=== PATIENT | female | born 1955 | race African-American/Black ===

== ENCOUNTER 2016-10-23 01:28 | Emergency (ER) | payer MEDICAID, OTHER ==
[~2016-10-23] VITALS: Ht 170.2 cm; Wt 115.7 kg
[~2016-10-23 01:28] MED LIST: IBUPROFEN600 MG ORAL; NKM
--- NOTE | 2016-10-23 02:10 | Emergency Room Report ---
History of Present Illness General Chief Complaint: Abdominal Pain Source: Patient Present Illness HPI Patient presents with a month of right lower quadrant pain. She also has fairly significant back pain associated with this. Started September 14. She has some dysuria and also change in her urinary pattern. She had a hysterectomy on September 14. She initially took Wysox which helped the pain. She has no other pain medication at this time. She's been working. She's also been drinking some alcohol which has helped. No vomiting or diarrhea. Pain is 10/10, burning /aching, constant. She's also complained of some chest pain which has been intermittent. The last time was a week ago. Allergies: Coded Allergies: No Known Allergies (Unverified , 05/21/16) Patient History Past Medical History: see triage record Past Surgical History: hysterectomy Social History: Reports: alcohol use, Denies: smoking Social History Narrative guard supervisor Last Menstrual Period: Hysterectomy Now: No Reviewed Nursing Documentation: PMH: Agreed, PSxH: Agreed Nursing Documentation-PMH Past Medical History: No History, Except For Hx Diabetes: Yes Review of Systems All Other Systems: negative except mentioned in HPI Physical Exam Vital Signs Date Time Temp Pulse Resp B/P Pulse Ox O2 Delivery O2 Flow Rate FiO2 10/23/16 01:34 98.1 78 16 159/84 100 Room Air Sp02 EP Interpretation: reviewed, normal General Appearance: well appearing, no apparent distress, GCS 15 Head: normocephalic Eyes: bilateral eye PERRL, bilateral eye normal inspection ENT: moist mucus membranes Neck: supple Respiratory: lungs clear, normal breath sounds Cardiovascular #1: regular rate, rhythm Cardiovascular #2: 2+ radial (R) Gastrointestinal: normal bowel sounds, non-distended, no hernia, no rebound, guarding - minimal, tenderness Musculoskeletal: back normal, gait/station normal, normal range of motion Neurologic: alert, oriented x3, grossly normal Psychiatric: mood/affect normal Skin: normal inspection, warm/dry Medical Decision Making Diagnostic Impression: Primary Impression: Abdominal pain Qualified Codes: R10.31 - Right lower quadrant pain Additional Impressions: Back pain Qualified Codes: M54.5 - Low back pain Monial infection of vagina ER Course The patient presents with right lower quadrant pain that's been well for months. Also radiates to her back. Differential includes muscle strain, ovarian cysts, postsurgical complication, UTI, pyelonephritis amongst others. Emergent evaluation with labs, x-ray and EKG is she's been complaining about chest pain. Patient treated with IV hydration and analgesia. Labs remarkable for normal white count and H&H. Has microcytic indices. Urinalysis shows yeast and also minimal pyuria. The patient still has significant lower back pain. Plain films are unremarkable. A CT of the abdomen and pelvis is ordered including bone windows back. CT with R adnexal cystic process. Discussed this with patient . Pain is improved. Patient stable for outpatient observation and treatment. Laboratory Tests Test 10/23/16 01:53 10/23/16 01:55 Urine Color Pale yellow Urine Appearance Clear Urine pH 6 (4.5-8.0) Urine Specific [place] 1.025 (1.005-1.035) Urine Protein Negative (NEGATIVE) Urine Glucose (UA) Negative (NEGATIVE) Urine Ketones Negative (NEGATIVE) Urine Occult Blood 1+ (NEGATIVE) H Urine Nitrite Negative (NEGATIVE) Urine Bilirubin Negative (NEGATIVE) Urine Urobilinogen 1 MG/DL (0.0-1.0) H Urine Leukocyte Esterase 1+ (NEGATIVE) H Urine RBC 2-4 /HPF (0 - 2) H Urine WBC 2-4 /HPF (0 - 2) Urine Squamous Epithelial Cells Many /LPF (NONE/OCC) H Urine Bacteria Few /HPF (NONE) Urine Yeast Moderate /HPF (NONE) H White Blood Count 7.2 K/UL (4.8-10.8) Red Blood Count 5.07 M/UL (4.20-5.40) Hemoglobin 10.1 G/DL (12.0-16.0) L Hematocrit 34.2 % (37.0-47.0) L Mean Corpuscular Volume 68 FL (80-99) L Mean Corpuscular Hemoglobin 19.8 PG (27.0-31.0) L Mean Corpuscular Hemoglobin Concent 29.4 G/DL (32.0-36.0) L Red Cell Distribution Width 18.4 % (11.6-14.8) H Platelet Count 277 K/UL (150-450) Mean Platelet Volume 7.5 FL (6.5-10.1) Neutrophils (%) (Auto) 65.1 % (45.0-75.0) Lymphocytes (%) (Auto) 25.3 % (20.0-45.0) Monocytes (%) (Auto) 6.7 % (1.0-10.0) Eosinophils (%) (Auto) 1.9 % (0.0-3.0) Basophils (%) (Auto) 1.0 % (0.0-2.0) Prothrombin Time 9.8 SEC (9.30-11.50) Prothrombin Time INR 1.0 (0.9-1.1) PTT 28 SEC (23-33) Sodium Level 143 mEQ/L (135-145) Potassium Level 3.7 mEQ/L (3.4-4.9) Chloride Level 102 mEQ/L (98-107) Carbon Dioxide Level 29 mEQ/L (20-30) Anion Gap 12 (5-15) Blood Urea Nitrogen 13 mg/dL (7-23) Creatinine 0.8 mg/dL (0.5-0.9) Estimate Glomerular Filtration Rate > 60 mL/min (>60) Glucose Level 126 mg/dL (74-106) H Calcium Level 9.1 mg/dL (8.6-10.2) Total Bilirubin 0.4 mg/dL (0.0-1.2) Aspartate Amino Transferase (AST) 14 U/L (5-40) Alanine Aminotransferase (ALT) 8 U/L (3-33) Alkaline Phosphatase 98 U/L (35-104) Troponin I < 0.30 ng/mL (<=0.30) Total Protein 7.5 g/dL (6.6-8.7) Albumin 3.9 g/dL (3.5-5.2) Globulin 3.6 g/dL Albumin/Globulin Ratio 1.0 (1.0-2.7) Lipase 38 U/L (< 60) EKG Diagnostic Results Rate: normal Rhythm: NSR ST Segments: no acute changes Rhythm Strip Diag. Results EP Interpretation: yes Rhythm: NSR, no PVC's, no ectopy CT/MRI/US Diagnostic Results CT/MRI/US Diagnostic Results : Imaging Test Ordered: CT abd and pelvis Impression R adnexal cystic lesion 2/4X1.6. DJD spine an hips Last Vital Signs Date Time Temp Pulse Resp B/P Pulse Ox O2 Delivery O2 Flow Rate FiO2 10/23/16 05:15 98.1 66 16 143/84 100 Room Air Status: improved Disposition: HOME, SELF-CARE Condition: Improved Scripts Fluconazole (FLUCONAZOLE) 100 Mg Tablet 100 MG ORAL DAILY, #7 TAB 0 Refills Prov: Blu Saleh M.D. 10/23/16 Tramadol Hcl* (ULTRAM*) 50 Mg Tablet 50 MG ORAL Q6H Y for For Pain, #12 TAB 0 Refills Prov: Blu Saleh M.D. 10/23/16 Ibuprofen* (MOTRIN*) 600 Mg Tablet 600 MG ORAL Q6H Y for For Pain, #20 TAB Prov: Blu Saleh M.D. 10/23/16 Referrals: NON PHYSICIAN (PCP) Blu Saleh M.D. Oct 23, 2016 02:10
[2016-10-23] MEDS ORDERED: Ketorolac 30mg Inj IV ONE (02:15)
[2016-10-23 02:26] VITALS: BP 159/84
[2016-10-23 02:29] LABS: EOSINOPHILS % (AUTO) 1.9 % (0.0-3.0); LYMPHOCYTES % (AUTO) 25.3 % (20.0-45.0); MEAN CORPUSCULAR HEMOGLOBIN 19.8 PG (27.0-31.0); MEAN CORPUSCULAR HGB CONC 29.4 G/DL (32.0-36.0); MEAN CORPUSCULAR VOLUME 68 FL (80-99); MEAN PLATELET VOLUME 7.5 FL (6.5-10.1); MONOCYTES % (AUTO) 6.7 % (1.0-10.0); NEUTROPHILS % (AUTO) 65.1 % (45.0-75.0); PLATELET COUNT 277 K/UL (150-450); RED BLOOD COUNT 5.07 M/UL (4.20-5.40); RED CELL DISTRIBUTION WIDTH 18.4 % (11.6-14.8); WHITE BLOOD COUNT 7.2 K/UL (4.8-10.8)
[2016-10-23 02:29] LABS: APPEARANCE,URINE CLEAR; KETONES,URINE NEGATIVE (NEGATIVE); LEUKOCYTE ESTERASE ,URINE 1+ (NEGATIVE); NITRITE,URINE NEGATIVE (NEGATIVE); PH,URINE 6 (4.5-8.0); PROTEIN,URINE NEGATIVE (NEGATIVE); UROBILINOGEN,URINE 1 MG/DL (0.0-1.0)
[2016-10-23 02:38] LABS: PROTHROMBIN TIME 9.8 SEC (9.30-11.50)
[2016-10-23 02:40] LABS: BACTERIA,URINE FEW /HPF; SQUAMOUS EPITHELIAL CELL,UR MANY /LPF (NONE/OCC); YEAST,URINE MODERATE /HPF
[2016-10-23 02:44] LABS: TROPONIN I < 0.30 ng/mL (<=0.30)
[2016-10-23 02:46] LABS: ALANINE AMINOTRANSFERASE 8 U/L (3-33); ANION GAP 12 (5-15); ASPARTATE AMINO TRANSFERASE 14 U/L (5-40); CALCIUM 9.1 mg/dL (8.6-10.2); CARBON DIOXIDE 29 mEQ/L (20-30); CHLORIDE 102 mEQ/L (98-107); CREATININE 0.8 mg/dL (0.5-0.9); GLOMERULAR FILTRATION RATE > 60 mL/min (>60); HEMOLYSIS 0; LIPASE 38 U/L (< 60); POTASSIUM 3.7 mEQ/L (3.4-4.9); SODIUM 143 mEQ/L (135-145); TOTAL PROTEIN 7.5 g/dL (6.6-8.7)
[2016-10-23 04:41] VITALS: BP 143/84
[2016-10-23] MEDS ORDERED: TRAMADOL HCL50 MG ORAL (05:01)
[2016-10-23] MEDS ORDERED: IBUPROFEN600 MG ORAL (05:01)
[2016-10-23] MEDS ORDERED: FLUCONAZOLE100 MG ORAL (05:06)
[2016-10-23 05:15] VITALS: BP 143/84
--- NOTE | 2016-10-24 09:06 | Diagnostic Imaging Report ---
Indication: ABD PAIN Technique: CT scan of the abdomen and pelvis was performed from the diaphragms to the symphysis pubis with intravenous contrast material only per specific request of the ordering physician.. 5 mm sections were generated. Axial, coronal, and sagittal images are presented. Dose: Total Dose Length Product - DLP [address] Dose Index - CTDIvol(s) 19.28 mGy. Comparison: None Findings: The liver is unremarkable. The gallbladder is normal. The spleen is unremarkable. The pancreas is normal. Adrenal glands are unremarkable. A tiny low-density area in the right kidney, likely representing a poorly imaged cyst. The aorta and inferior vena cava are normal caliber. Retroperitoneum is free of adenopathy. There is scarring in the anterior abdominal wall from previous surgery. The appendix is normal. There is moderate fecal material right colon. The bladder is unremarkable. The uterus is absent. There is a 19 mm low-density lesion in the right ovary. The bones are unremarkable. Impression: Previous hysterectomy. Ovarian cyst. Scarring in the intra-abdominal wall from previous surgery. Probable small right renal cyst. No acute abnormality. The above report is concordant with preliminary reading by [employer] . The CT scanner at [facility] is accredited by the [employer] and the scans are performed using protocols designed to limit radiation exposure to as low as reasonably achievable to attain images of sufficient resolution adequate for diagnostic evaluation.
--- NOTE | 2016-10-24 09:06 | Diagnostic Imaging Report ---
Indication: ABD PAIN Technique: XRAY ABDOMEN 1VIEW/KUB Comparison: None. Findings: The bowel gas pattern is nonobstructive. There are some cystic changes in the right acetabulum with narrowing of the joint space. No acute fracture through the ring the bones are unremarkable. There is no free fluid. No gross free air. Impression: Degenerative changes in the right hip with probable subchondral cyst in the acetabulum. Otherwise negative. Nonobstructive bowel gas pattern.
--- NOTE | 2016-10-26 00:25 | Cardiology Report ---
APPROVED REPORT EKG Measurement Heart [id number] Normal sinus rhythm Normal ECG
== END 2016-10-23 05:29 | disposition home or self-care (01) ==
LOC: EMR 02:07
DX: R10.31 Right lower quadrant pain (principal); M54.5 Low back pain; E11.9 Type 2 diabetes mellitus without complications; Z90.710 Acquired absence of both cervix and uterus
CPT/HCPCS: 36415; 74000; 74177; 80053; 81003; 83690; 84484; 85025; 85610; 85730; 87086; 93005; 96360; 96374; 99284; J1885; Q9967

== ENCOUNTER 2016-11-06 10:09 | Emergency (ER) | payer MEDICAID ==
[~2016-11-06] VITALS: Ht 170.2 cm; Wt 120.2 kg
[~2016-11-06 10:09] MED LIST changes: +FLUCONAZOLE100 MG ORAL; +TRAMADOL HCL50 MG ORAL
[2016-11-06] MEDS ORDERED: Ketorolac 30mg Inj IV ONE (10:45)
[2016-11-06 10:55] VITALS: BP 153/84
[2016-11-06 11:05] LABS: BASOPHILS % (AUTO) 1.4 % (0.0-2.0); EOSINOPHILS % (AUTO) 2.5 % (0.0-3.0); LYMPHOCYTES % (AUTO) 22.6 % (20.0-45.0); MEAN CORPUSCULAR HEMOGLOBIN 19.7 PG (27.0-31.0); MEAN CORPUSCULAR HGB CONC 28.9 G/DL (32.0-36.0); MEAN CORPUSCULAR VOLUME 68 FL (80-99); MEAN PLATELET VOLUME 8.5 FL (6.5-10.1); MONOCYTES % (AUTO) 7.6 % (1.0-10.0); NEUTROPHILS % (AUTO) 65.9 % (45.0-75.0); PLATELET COUNT 299 K/UL (150-450); RED BLOOD COUNT 4.92 M/UL (4.20-5.40); RED CELL DISTRIBUTION WIDTH 18.2 % (11.6-14.8)
[2016-11-06 11:13] LABS: APPEARANCE,URINE CLEAR; KETONES,URINE NEGATIVE (NEGATIVE); LEUKOCYTE ESTERASE ,URINE NEGATIVE (NEGATIVE); NITRITE,URINE NEGATIVE (NEGATIVE); PH,URINE 6 (4.5-8.0); PROTEIN,URINE NEGATIVE (NEGATIVE); UROBILINOGEN,URINE NORMAL MG/DL (0.0-1.0)
[2016-11-06 11:15] LABS: BACTERIA,URINE FEW /HPF; SQUAMOUS EPITHELIAL CELL,UR FEW /LPF (NONE/OCC); WBC,URINE 0-2 /HPF (0 - 2)
[2016-11-06 11:31] LABS: ALANINE AMINOTRANSFERASE 11 U/L (3-33); ALBUMIN/GLOBULIN RATIO 1.2 (1.0-2.7); ANION GAP 16 (5-15); ASPARTATE AMINO TRANSFERASE 17 U/L (5-40); CALCIUM 8.8 mg/dL (8.6-10.2); CARBON DIOXIDE 25 mEQ/L (20-30); CHLORIDE 100 mEQ/L (98-107); CREATININE 0.7 mg/dL (0.5-0.9); GLOMERULAR FILTRATION RATE > 60 mL/min (>60); HEMOLYSIS 0; LIPASE 33 U/L (< 60); POTASSIUM 3.6 mEQ/L (3.4-4.9); SODIUM 141 mEQ/L (135-145); TOTAL PROTEIN 7.2 g/dL (6.6-8.7)
[2016-11-06] MEDS ORDERED: IBUPROFEN600 MG ORAL (12:28)
[2016-11-06] MEDS ORDERED: TRAMADOL HCL50 MG ORAL (12:28)
[2016-11-06] MEDS ORDERED: ACETAMINOPHEN-1 EAC1 ORAL (12:28)
[2016-11-06] MEDS ORDERED: IBUPROFEN800 MG ORAL (12:30)
[2016-11-06 12:36] VITALS: BP 146/84
[2016-11-06 12:37] VITALS: BP 153/84
--- NOTE | 2016-11-06 13:17 | Emergency Room Report ---
History of Present Illness General Chief Complaint: Pelvic Pain Source: Patient Present Illness HPI 60-year-old female presents ED complaining of lower pelvic pain. States she was seen here last week for the same complaint. Head CT which showed cyst of right ovary. Patient was subsequently discharged on pain medication. The pain medications are not helping. States the pain as throbbing, 8/10, nonradiating. No other aggravating or relieving factors. Denies any dysuria or hematuria. Denies any discharge. Patient states in September she had a hysterectomy at [facility]. Patient is scheduled followup with [facility] in a few weeks but cannot wait because of the pain. Patient states she drank alcohol because the pain was so bad. No other aggravating or relieving factors. Denies any other associated symptom Allergies: Coded Allergies: No Known Allergies (Unverified , 05/21/16) Patient History Past Medical History: HTN Past Surgical History: hysterectomy Pertinent Family History: none Social History: Denies: alcohol use, drug use, smoking Last Menstrual Period: Hyst Now: No Immunizations: UTD Reviewed Nursing Documentation: PMH: Agreed, PSxH: Agreed Nursing Documentation-PMH Hx Hypertension: Yes Hx Diabetes: Yes Review of Systems All Other Systems: negative except mentioned in HPI Physical Exam Vital Signs Date Time Temp Pulse Resp B/P Pulse Ox O2 Delivery O2 Flow Rate FiO2 11/06/16 10:11 97.9 88 16 153/84 100 Room Air Sp02 EP Interpretation: reviewed, normal General Appearance: no apparent distress, alert, GCS 15, non-toxic, obese Head: normocephalic Eyes: bilateral eye PERRL, bilateral eye normal inspection ENT: normal ENT inspection Neck: normal inspection Respiratory: chest non-tender, lungs clear, normal breath sounds, speaking full sentences Cardiovascular #1: regular rate, rhythm, no edema Gastrointestinal: normal bowel sounds, soft, non-distended, no guarding, no rebound, tenderness - R inguinal area. some nodularity noted Rectal: deferred Genitourinary: no CVA tenderness Musculoskeletal: normal inspection Neurologic: alert, oriented x3, responsive, motor strength/tone normal, sensory intact, speech normal Psychiatric: normal inspection Skin: normal inspection Lymphatic: inguinal node tender (R) Medical Decision Making Diagnostic Impression: Primary Impression: Adnexal pain ER Course Hospital Course 60-year-old F presents to ED with RLQ pain Differential diagnosis includes-appendicitis, cholecystitis, small bowel obstruction, gastritis, Clinical course Patient placed on stretcher. After initial history and physical I ordered labs , IV fluids, pain medications and Pelvic US Labs - no leukocytosis, electrolytes ok, LFTs normal, UA unremarkable Pelvic US - no acute adenxal pathology identified. R inguinal lymphadenopathy noted Unless visit patient had CT which showed right ovarian cystic structure. Cannot be further evaluated an ultrasound today. I recommended patient followup with [facility] who performed the hysterectomy I feel this is a highly complex case requiring extensive working including EKG/ Rhythm strip, Xray/CT/US, Blood/urine lab work, repeat exams while in ED, and administration of strong opiates/narcotics for pain control, admission to hospital or close patient follow up. Diagnosis - Adnexal pain Stable and discharged to home with Rx Motrin. Followup with PMD. Return to ED if symptoms recur or worsen Labs Test 11/06/16 10:40 White Blood Count 6.0 K/UL (4.8-10.8) Red Blood Count 4.92 M/UL (4.20-5.40) Hemoglobin 9.7 G/DL (12.0-16.0) Hematocrit 33.6 % (37.0-47.0) Mean Corpuscular Volume 68 FL (80-99) Mean Corpuscular Hemoglobin 19.7 PG (27.0-31.0) Mean Corpuscular Hemoglobin Concent 28.9 G/DL (32.0-36.0) Red Cell Distribution Width 18.2 % (11.6-14.8) Platelet Count 299 K/UL (150-450) Mean Platelet Volume 8.5 FL (6.5-10.1) Neutrophils (%) (Auto) 65.9 % (45.0-75.0) Lymphocytes (%) (Auto) 22.6 % (20.0-45.0) Monocytes (%) (Auto) 7.6 % (1.0-10.0) Eosinophils (%) (Auto) 2.5 % (0.0-3.0) Basophils (%) (Auto) 1.4 % (0.0-2.0) Urine Color Pale yellow Urine Appearance Clear Urine pH 6 (4.5-8.0) Urine Specific [place] 1.025 (1.005-1.035) Urine Protein Negative (NEGATIVE) Urine Glucose (UA) Negative (NEGATIVE) Urine Ketones Negative (NEGATIVE) Urine Occult Blood 1+ (NEGATIVE) Urine Nitrite Negative (NEGATIVE) Urine Bilirubin Negative (NEGATIVE) Urine Urobilinogen Normal MG/DL (0.0-1.0) Urine Leukocyte Esterase Negative (NEGATIVE) Urine RBC 2-4 /HPF (0 - 2) Urine WBC 0-2 /HPF (0 - 2) Urine Squamous Epithelial Cells Few /LPF (NONE/OCC) Urine Bacteria Few /HPF (NONE) Sodium Level 141 mEQ/L (135-145) Potassium Level 3.6 mEQ/L (3.4-4.9) Chloride Level 100 mEQ/L (98-107) Carbon Dioxide Level 25 mEQ/L (20-30) Anion Gap 16 (5-15) Blood Urea Nitrogen 15 mg/dL (7-23) Creatinine 0.7 mg/dL (0.5-0.9) Estimat Glomerular Filtration Rate > 60 mL/min (>60) Glucose Level 109 mg/dL (74-106) Calcium Level 8.8 mg/dL (8.6-10.2) Total Bilirubin 0.3 mg/dL (0.0-1.2) Aspartate Amino Transf (AST/SGOT) 17 U/L (5-40) Alanine Aminotransferase (ALT/SGPT) 11 U/L (3-33) Alkaline Phosphatase 93 U/L (35-104) Total Protein 7.2 g/dL (6.6-8.7) Albumin 4.0 g/dL (3.5-5.2) Globulin 3.2 g/dL Albumin/Globulin Ratio 1.2 (1.0-2.7) Lipase 33 U/L (< 60) Last Vital Signs Date Time Temp Pulse Resp B/P Pulse Ox O2 Delivery O2 Flow Rate FiO2 11/06/16 12:37 97.9 70 16 153/84 100 Room Air Status: improved Disposition: HOME, SELF-CARE Condition: Stable Scripts Ibuprofen* (MOTRIN*) 800 Mg Tablet 800 MG ORAL Q8H, #30 TAB 0 Refills Prov: FRANKIE CARD M.D. 11/06/16 Departure Forms: Return to Work Return to Work Date: November 07, 2016 Work Restrictions: None Patient Instructions: Ovarian Cyst, [id number], Lymphadenopathy FRANKIE CARD M.D. Nov 06, 2016 13:17
--- NOTE | 2016-11-08 08:47 | Diagnostic Imaging Report ---
Indication: Right lower quadrant pain Technique: Graded compression images of the right lower quadrant and right inguinal region. Transabdominal images of the pelvis. Transvaginal images not obtained-according to the technologist, per patient request Comparison: None Findings: The appendix, either normal or abnormal, is not demonstrated. In the right inguinal region, prominent but not frankly enlarged lymph nodes normal architecture is noted. The uterus is surgically absent. No pelvic mass is demonstrated Impression: Nonvisualization of the appendix, therefore not diagnostic for presence or absence of acute appendicitis No inguinal pathology to correlate with stated clinical history of inguinal pain. Surgically absent uterus. Nonvisualized ovaries Limited exam, due to use of transvaginal imaging only
== END 2016-11-06 12:38 | disposition home or self-care (01) ==
LOC: EMR 10:45
DX: R10.2 Pelvic and perineal pain (principal); R10.31 Right lower quadrant pain; I10 Essential (primary) hypertension; E11.9 Type 2 diabetes mellitus without complications; Z90.710 Acquired absence of both cervix and uterus
CPT/HCPCS: 36415; 76856; 80053; 81003; 83690; 85025; 96374; 96375; 99284; J1885; J7040

== ENCOUNTER 2019-10-05 07:54 | Emergency (ER) | payer MEDICAID, OTHER ==
[~2019-10-05] VITALS: Ht 170.2 cm; Wt 127.0 kg
[~2019-10-05 07:54] MED LIST changes: +ACETAMINOPHEN-1 EAC1 ORAL; +IBUPROFEN800 MG ORAL
--- NOTE | 2019-10-05 08:10 | NUR ---
ED Nurse Note: Pt walked in from home c/o intermittent sharp pain on left shoulder and arm x 2 months. Pt denies injury. A+Ox4, respirations even and unlabored on room air. Vitals stable as documented.
--- NOTE | 2019-10-05 08:14 | Emergency Room Report ---
History of Present Illness General Chief Complaint: Pain Source: Patient, Medical Record Present Illness HPI Disclaimer: Please note that this report is being documented using [employer] technology. This can lead to erroneous entry secondary to incorrect interpretation by the dictating instrument. HPI: 63-year-old female presents for evaluation of left shoulder pain. Patient awoke from sleep earlier this morning complaining of sharp pain in the left shoulder that radiated down the upper arm. Denied numbness, tingling. Denied pain with movement or limitation to range of movement. Denied weakness. No recent injury reported. Denied any neck or back pain. Denied chest pain, shortness of breath, cough, lightheadedness, syncope, palpitations, abdominal pain, nausea, vomiting, diarrhea. She has had this left shoulder pain intermittently for the past few months. She was sent by her PMD to [facility] for a stress test but has not yet completed it. No cardiac history noted. She is a diabetic but does not routinely check her sugars. Pain is now resolved. She has no complaints currently. PMH: Diabetes PSH: Reviewed in chart Allergies: None reported Social Hx: Denies drug or alcohol use Allergies: Coded Allergies: No Known Allergies (Unverified , 05/21/16) COVID-19 Screening Contact w/high risk pt: No Recent Travel to affected area: No Experienced COVID-19 symptoms?: No Nursing Documentation-PMH Past Medical History: No History, Except For Hx Hypertension: Yes Hx Diabetes: Yes Review of Systems All Other Systems: negative except mentioned in HPI Physical Exam Vital Signs Date Time Temp Pulse Resp B/P (MAP) Pulse Ox O2 Delivery O2 Flow Rate FiO2 10/05/19 08:00 97.7 78 18 124/65 (84) 98 Room Air General: Awake and alert, no acute distress HEENT: NC/AT. EOMI. Neck: Supple, trachea midline Chest Wall: No tenderness, no deformity Cardiovascular: RRR. S1 and S2 normal. No murmur appreciated Resp: Normal work of breathing. No cough, wheezing or crackles appreciated Abdomen: Abdomen is soft, nondistended. Nontender Skin: Intact. No abrasions, laceration or rash over the exposed skin MSK: Normal tone and bulk. Moving all extremities. No obvious deformity. Full range of motion in the left upper extremity. Strength is 5/5 the shoulder, elbow and wrist. Neuro: Awake and alert. Mentating appropriately. Medical Decision Making Diagnostic Impression: Primary Impression: Shoulder pain ER Course This 63-year-old female presenting for evaluation of intermittent sharp left shoulder pain occurring over the past few months. Currently no pain or discomfort. Differential includes not limited to arthritis, impingement, muscle spasm, atypical chest pain, GERD, ACS to name a few. Patient has risk factors and is poor follow-up. She was already sent for a stress test by her PMD but has not yet completed it. Will obtain EKG, chest x-ray, labs. If unremarkable she may be discharged to follow-up with her PMD regarding outpatient stress test. Laboratory Tests Test 10/05/19 08:30 10/05/19 10:45 White Blood Count 7.6 K/UL (4.8-10.8) Red Blood Count 5.09 M/UL (4.20-5.40) Hemoglobin 13.3 G/DL (12.0-16.0) Hematocrit 39.6 % (37.0-47.0) Mean Corpuscular Volume 78 FL (80-99) L Mean Corpuscular Hemoglobin 26.2 PG (27.0-31.0) L Mean Corpuscular Hemoglobin Concent 33.6 G/DL (32.0-36.0) Red Cell Distribution Width 13.3 % (11.6-14.8) Platelet Count 265 K/UL (150-450) Mean Platelet Volume 7.2 FL (6.5-10.1) Neutrophils (%) (Auto) 70.1 % (45.0-75.0) Lymphocytes (%) (Auto) 22.4 % (20.0-45.0) Monocytes (%) (Auto) 4.8 % (1.0-10.0) Eosinophils (%) (Auto) 1.7 % (0.0-3.0) Basophils (%) (Auto) 1.1 % (0.0-2.0) Sodium Level 139 MMOL/L (136-145) 143 MMOL/L (136-145) Potassium Level 2.6 MMOL/L (3.5-5.1) *L 3.9 MMOL/L (3.5-5.1) Chloride Level 100 MMOL/L (98-107) 103 MMOL/L (98-107) Carbon Dioxide Level 32 MMOL/L (21-32) 31 MMOL/L (21-32) Anion Gap 8 mmol/L (5-15) 9 mmol/L (5-15) Blood Urea Nitrogen 18 mg/dL (7-18) 16 mg/dL (7-18) Creatinine 0.8 MG/DL (0.55-1.30) 0.8 MG/DL (0.55-1.30) Estimated Glomerular Filtration Rate > 60 mL/min (>60) > 60 mL/min (>60) Glucose Level 129 MG/DL (74-106) H 100 MG/DL (74-106) Calcium Level 9.3 MG/DL (8.5-10.1) 9.4 MG/DL (8.5-10.1) Magnesium Level 2.4 MG/DL (1.8-2.4) Total Bilirubin 0.5 MG/DL (0.2-1.0) Aspartate Amino Transferase (AST) 16 U/L (15-37) Alanine Aminotransferase (ALT) 20 U/L (12-78) Alkaline Phosphatase 112 U/L (46-116) Troponin I 0.000 ng/mL (0.000-0.056) Total Protein 8.3 G/DL (6.4-8.2) H Albumin 4.0 G/DL (3.4-5.0) Globulin 4.3 g/dL Albumin/Globulin Ratio 0.9 (1.0-2.7) L EKG Diagnostic Results EKG Time: 08:24 Rate: normal Rhythm: NSR ST Segments: no acute changes Other Impression Sinus rhythm, borderline left axis, no ST segment elevation. Nonspecific ST changes Rhythm Strip Diag. Results Rhythm Strip Time: 08:24 EP Interpretation: yes Rate: 75 Rhythm: NSR, no PVC's, no ectopy Chest X-Ray Diagnostic Results Chest X-Ray Diagnostic Results : Chest X-Ray Ordered: Yes # of Views/Limited/Complete: 1 View Indication: Chest Pain EP Interpretation: Yes Interpretation: no consolidation, no effusion, no pneumothorax, no acute cardiopulmonary disease Impression: No acute disease Electronically Signed by: Electronically signed by Dr. Ravi Hutson Reevaluation Time: 11:34 Last Vital Signs Date Time Temp Pulse Resp B/P (MAP) Pulse Ox O2 Delivery O2 Flow Rate FiO2 10/05/19 08:00 97.7 78 18 124/65 (84) 98 Room Air Reevaluation Impression EKG shows nonspecific T wave changes but no signs of acute ischemia. Chest x- ray largely unremarkable. Labs initially showed a critical low potassium. She was given supplementation however repeat draw shows potassium is in the normal range. I believe the first value was an lab error. She is well-appearing, no recurrence of pain or discomfort. She is scheduled for an outpatient stress test at [facility] will follow up with her PMD. I advised her to have her potassium level rechecked as well. Discussed isolation protocols given the pandemic coronavirus in our [place] at this time. Discussed reasons to return to the emergency department. She understands and agrees with treatment plan. Disposition: HOME, SELF-CARE Condition: Stable Scripts Acetaminophen* (TYLENOL EXTRA STRENGTH*) 500 Mg Tablet 500 MG ORAL Q8H PRN for Prn Headache/Temp > 101, #30 TAB 0 Refills Prov: Ravi Hutson MD 10/05/19 Referrals: [facility] Open 24 hour /7 days a week by Appointment Only [address] [facility] [address] [facility] [address] [facility] [id number] Patient Instructions: Shoulder Pain, Shoulder Range of Motion Exercises Additional Instructions: Please follow-up with your primary care doctor in the next 1 to 3 days to discuss this emergency department visit and for reevaluation. If you have any new or worsening symptoms please return to the emergency department for reevaluation. Limit your contact with others as much as possible over the next 14 days. Stay minimum of 6 feet away from others, do not attend large gatherings and clean and disinfect all heavily used surfaces. Follow CDC guidelines for isolation and infection prevention. If you experience any new or worsening symptoms discussed with your doctor or return to the emergency department for reevaluation. Please note that this report is being documented using [employer] technology. This can lead to erroneous entry secondary to incorrect interpretation by the dictating instrument. Ravi Hutson MD Oct 05, 2019 08:14
--- NOTE | 2019-10-05 08:17 | NUR ---
ED Nurse Note: Pt now complaining of Chest pain. Pt moved to bed 4 and placed on monitor.
[2019-10-05 08:20] VITALS: BP 108/67
--- NOTE | 2019-10-05 08:20 | NUR ---
ED Nurse Note: Pt reports pain on left lower part of chest under breast, radiating to left shoulder and arm.
--- NOTE | 2019-10-05 08:56 | Diagnostic Imaging Report ---
EXAM: XR Chest, 1 View CLINICAL HISTORY: Chest pain TECHNIQUE: Frontal view of the chest. COMPARISON: No relevant prior studies available. FINDINGS: Lungs: Mild pulmonary vascular congestion. The lungs are otherwise clear. Pleural space: Unremarkable. The costophrenic angles are sharp. No visible pneumothorax. Heart: The cardiac silhouette appears mildly enlarged, however may be magnified by portable AP exam technique. Mediastinum: Unremarkable. Bones/joints: Unremarkable. IMPRESSION: Mild pulmonary vascular congestion.
[2019-10-05 09:08] LABS: BASOPHILS % (AUTO) 1.1 % (0.0-2.0); EOSINOPHILS % (AUTO) 1.7 % (0.0-3.0); HEMATOCRIT 39.6 % (37.0-47.0); HEMOGLOBIN 13.3 G/DL (12.0-16.0); LYMPHOCYTES % (AUTO) 22.4 % (20.0-45.0); MEAN CORPUSCULAR VOLUME 78 FL (80-99); MONOCYTES % (AUTO) 4.8 % (1.0-10.0); NEUTROPHILS % (AUTO) 70.1 % (45.0-75.0); PLATELET COUNT 265 K/UL (150-450); RED BLOOD COUNT 5.09 M/UL (4.20-5.40); RED CELL DISTRIBUTION WIDTH 13.3 % (11.6-14.8); WHITE BLOOD COUNT 7.6 K/UL (4.8-10.8)
[2019-10-05 09:10] LABS: ALANINE AMINOTRANSFERASE 20 U/L (12-78); ALBUMIN/GLOBULIN RATIO 0.9 (1.0-2.7); ALKALINE PHOSPHATASE 112 U/L (46-116); ANION GAP 8 mmol/L (5-15); ASPARTATE AMINO TRANSFERASE 16 U/L (15-37); BILIRUBIN,TOTAL 0.5 MG/DL (0.2-1.0); BLOOD UREA NITROGEN 18 mg/dL (7-18); CALCIUM 9.3 MG/DL (8.5-10.1); CARBON DIOXIDE 32 MMOL/L (21-32); CHLORIDE 100 MMOL/L (98-107); CREATININE 0.8 MG/DL (0.55-1.30); SODIUM 139 MMOL/L (136-145)
[2019-10-05 09:11] LABS: POTASSIUM 2.6 MMOL/L (3.5-5.1)
[2019-10-05 10:20] VITALS: BP 102/69
[2019-10-05] MEDS ORDERED: KLOR-CON20 MEQ ORAL (10:27)
[2019-10-05 11:17] LABS: ANION GAP 9 mmol/L (5-15); BLOOD UREA NITROGEN 16 mg/dL (7-18); CALCIUM 9.4 MG/DL (8.5-10.1); CARBON DIOXIDE 31 MMOL/L (21-32); CHLORIDE 103 MMOL/L (98-107); CREATININE 0.8 MG/DL (0.55-1.30); POTASSIUM 3.9 MMOL/L (3.5-5.1); SODIUM 143 MMOL/L (136-145)
[2019-10-05] MEDS ORDERED: TYLENOL EXTRA500 MG ORAL (11:24)
[2019-10-05 11:50] VITALS: BP 121/74
--- NOTE | 2019-10-05 11:50 | NUR ---
ER DISCHARGE NOTE: Patient is cleared to be discharged per ERMD, pt is aox4, on room air, with stable vital signs. pt was given dc and prescription instructions, pt was able to verbalize understanding, pt id band and iv site removed without complications. pt is able to ambulate with steady gait. pt took all belongings.
== END 2019-10-05 11:50 | disposition home or self-care (01) ==
LOC: EMR 08:08
DX: M25.512 Pain in left shoulder (principal); E11.9 Type 2 diabetes mellitus without complications; I10 Essential (primary) hypertension
CPT/HCPCS: 36415; 71045; 80048; 80053; 83735; 84484; 85025; 93005; 96365; J3480; Z7502; 99284; J8499